=== PATIENT | female | born 1950 | race Caucasian/White ===

== ENCOUNTER 2022-06-29 12:48 | Emergency (ER) | payer MEDICARE | END 2022-06-29 13:39 | disposition home or self-care (01) | LOC: BURERS 12:48 | DX: J01.90 Acute sinusitis, unspecified (principal); B96.89 Other specified bacterial agents as the cause of diseases classified elsewhere; H60.93 Unspecified otitis externa, bilateral | CPT/HCPCS: 99283 ==